=== PATIENT | female | born 1960 | race American Indian/Alaskan Native ===

== ENCOUNTER 2017-03-17 08:14 | Emergency (ER) | payer MEDICAID ==
[2017-03-17 08:23] VITALS: BP 122/70
--- NOTE | 2017-03-17 09:06 | Emergency Department Report ---
ED Extremity Problem HPI - General Chief complaint: Extremity Problem,Nontraumatic Stated complaint: FEET SWELLING/CHECK FOR DIABETES Time Seen by Provider: 03/17/17 08:53 Source: patient Mode of arrival: Ambulatory Limitations: No Limitations - History of Present Illness Initial comments: PT c/o that her feet have been swollen for 1 month. PT states she was seen at another ED 1 month ago and told to elevate her legs. PT states this has not helped. PT states she is currently in a substance abuse program and she has been standing more than normal. PT states she also has to walk up several steps to get to her classes. PT states is afraid that she has diabetes. PT states she has a family hx of diabetes and she has been having urinary frequency for 2 months. PT states that she has to get up at least 3 times at night to urinate. Pt denies injury or trauma. MD Complaint: extremity swelling Onset/Timin -: Gradual, month(s) Location: bilateral lower extremity History of Same: No -: No fever Quality: aching Consistency: constant Improves with: nothing Worsens with: walking Associated Symptoms: denies: chest pain, shortness of breath, fever - Related Data Previous Rx's Medication Instructions Recorded Last Taken Type Ibuprofen [Motrin] 400 mg PO Q8H PRN #20 tablet 12/07/16 Unknown Rx Loratadine [Claritin] 10 mg PO DAILY PRN #15 tablet 12/07/16 Unknown Rx Allergies Allergy/AdvReac Type Severity Reaction Status Date / Time acetaminophen Allergy Hives Verified 12/07/16 15:16 [From Tylenol-Codeine #3] codeine phosphate Allergy Hives Verified 12/07/16 15:16 [From Tylenol-Codeine #3] naproxen Allergy Hives Verified 12/07/16 15:16 tramadol Allergy Hives Verified 12/07/16 15:16 ED Review of Systems ROS: Stated complaint: FEET SWELLING/CHECK FOR DIABETES Other details as noted in HPI Comment: All other systems reviewed and negative Constitutional: denies: fever Respiratory: denies: shortness of breath Cardiovascular: denies: chest pain Gastrointestinal: denies: abdominal pain, nausea, vomiting Genitourinary: frequency. denies: dysuria, hematuria Musculoskeletal: as per HPI Skin: denies: rash ED Past Medical Hx - Past Medical History Previous Medical History?: Yes Hx Hypertension: Yes (no meds) Hx Psychiatric Treatment: Yes (bipolar ptsd) Hx Asthma: Yes Additional medical history: Narcotic abuse - Surgical History Past Surgical History?: Yes Hx Cholecystectomy: Yes Additional Surgical History: & Hernia repair - Family History Family history: diabetes - Social History Smoking Status: Current Every Day Smoker Substance Use Type: Prescribed - Medications Home Medications: Home Medications Medication Instructions Recorded Confirmed Last Taken Type Ibuprofen [Motrin] 400 mg PO Q8H PRN #20 tablet 12/07/16 Unknown Rx Loratadine [Claritin] 10 mg PO DAILY PRN #15 tablet 12/07/16 Unknown Rx ED Physical Exam - General Limitations: No Limitations General appearance: alert, in no apparent distress - Head Head exam: Present: atraumatic, normocephalic, normal inspection - Eye Eye exam: Present: normal appearance. Absent: conjunctival injection - ENT ENT exam: Present: normal exam, normal external ear exam - Neck Neck exam: Present: normal inspection, full ROM - Respiratory Respiratory exam: Present: normal lung sounds bilaterally. Absent: respiratory distress, chest wall tenderness - Cardiovascular Cardiovascular Exam: Present: regular rate, normal rhythm, normal heart sounds - GI/Abdominal GI/Abdominal exam: Present: soft. Absent: tenderness - Extremities Exam Extremities exam: Present: full ROM, pedal edema. Absent: tenderness - Expanded Lower Extremity Exam Left Knee exam: Present: normal inspection, full ROM Lower Leg exam: Present: normal inspection, full ROM. Absent: tenderness, swelling, Lashonda's sign Ankle exam: Present: normal inspection, full ROM Foot/Toe exam: Present: full ROM, swelling (trace ). Absent: tenderness Neuro vascular tendon exam: Present: no vascular compromise. Absent: pulse deficit, abnormal cap refill Gait: Positive: observed and normal Right Knee exam: Present: normal inspection, full ROM Lower Leg exam: Present: normal inspection, full ROM. Absent: tenderness, swelling, Lashonda's sign Ankle exam: Present: normal inspection, full ROM Foot/Toe exam: Present: full ROM, swelling (trace). Absent: tenderness Neuro vascular tendon exam: Present: no vascular compromise. Absent: pulse deficit Gait: Positive: observed and normal - Back Exam Back exam: Present: normal inspection, full ROM - Neurological Exam Neurological exam: Present: alert, oriented X3 - Psychiatric Psychiatric exam: Present: normal mood, flat affect - Skin Skin exam: Present: warm, dry, intact, normal color. Absent: rash ED Course Vital Signs 03/17/17 08:18 Temperature 98.3 F Pulse Rate 69 Respiratory 20 Rate Blood Pressure 122/70 O2 Sat by Pulse 100 Oximetry - Reevaluation(s) Reevaluation #1: 03/17/17 09:10 PT aware of plan of care. No questions at this time. Reevaluation #2: 03/17/17 10:52 PT aware of lab results. PT states she is a pt at [facility]. PT advised to follow up with PCP for her complaints. PT also instructed to continue to elevate ble and to wear compression socks when she knows she will be up on her feet. - Pulse Oximetry Interpretation Digit-Finger Initial Pulse Oximetry Readin Actions Taken: none ED Medical Decision Making - Lab Data Result diagrams: 03/17/17 09:19 03/17/17 09:19 - Differential Diagnosis acute renal insuff. new onset dm, uti Critical Care Time: No Critical care attestation.: If time is entered above; I have spent that time in minutes in the direct care of this critically ill patient, excluding procedure time. ED Disposition Clinical Impression: Pedal edema, Urinary frequency Disposition: DC-01 TO HOME OR SELFCARE Is pt being admited?: No Does the pt Need Aspirin: No Condition: Stable Instructions: Leg Edema (ED) Additional Instructions: Elevate your legs frequently Try wearing compression socks when you know you will be up on your feet for long periods of time. follow up with your MD at [facility] in the next 3-5 days Referrals: PRIMARY CARE,MD [Primary Care Provider] - 3-5 Days [facility] [Outside] - 3-5 Days Forms: Work/School Release Form(ED) Time of Disposition: 10:55
[2017-03-17 09:36] LABS: Basophils % (Auto) 0.1 % (0.0-1.8); Eosinophils % (Auto) 0.7 % (0.0-4.3); Hematocrit 32.1 % (30.3-42.9); Hemoglobin 10.8 gm/dl (10.1-14.3); Mean Corpuscular HGB Conc 34 % (30-34); Mean Corpuscular Hemoglobin 32 pg (28-32); Mean Corpuscular Volume 95 fl (79-97); Platelet Count 225 K/mm3 (140-440); Red Blood Count 3.37 M/mm3 (3.65-5.03); White Blood Count 8.2 K/mm3 (4.5-11.0)
[2017-03-17 09:51] LABS: Bilirubin,Urine NEG (Negative); Blood,Urine NEG (Negative); Ketones,Urine NEG (Negative); Leukocyte Esterase,Urine TR (Negative); Mucus,Urine FEW /HPF; Nitrite,Urine NEG (Negative); Protein,Urine <15 mg/dL mg/dL (Negative); Urobilinogen,Urine < 2.0 mg/dL (<2.0)
[2017-03-17 10:02] LABS: Alanine Aminotransferase 13 units/L (7-56); Albumin 3.8 g/dL (3.9-5); Albumin/Globulin Ratio 1.2 %; Alkaline Phosphatase 65 units/L (35-129); Anion Gap 13 mmol/L; Blood Urea Nitrogen 14 mg/dL (7-17); Calcium 8.7 mg/dL (8.4-10.2); Carbon Dioxide 26 mmol/L (22-30); Glucose 88 mg/dL (65-100); Potassium 4.8 mmol/L (3.6-5.0); Sodium 138 mmol/L (137-145); Total Protein 7.1 g/dL (6.3-8.2)
== END 2017-03-17 11:01 | disposition home or self-care (01) ==
LOC: ED 08:14
DX: R60.0 Localized edema (principal); R35.0 Frequency of micturition; I10 Essential (primary) hypertension; F31.9 Bipolar disorder, unspecified; J45.909 Unspecified asthma, uncomplicated; F17.200 Nicotine dependence, unspecified, uncomplicated
CPT/HCPCS: 36415; 80053; 81001; 85025; 99283

== ENCOUNTER 2017-04-02 11:24 | Emergency (ER) | payer MEDICAID ==
[2017-04-02 12:12] LABS: Basophils % (Auto) 0.2 % (0.0-1.8); Eosinophils % (Auto) 0.7 % (0.0-4.3); Hematocrit 34.5 % (30.3-42.9); Hemoglobin 11.4 gm/dl (10.1-14.3); Mean Corpuscular HGB Conc 33 % (30-34); Mean Corpuscular Hemoglobin 30 pg (28-32); Mean Corpuscular Volume 91 fl (79-97); Platelet Count 252 K/mm3 (140-440); Red Blood Count 3.78 M/mm3 (3.65-5.03); Red Cell Distribution Width 13.3 % (13.2-15.2); White Blood Count 9.2 K/mm3 (4.5-11.0)
--- NOTE | 2017-04-02 12:16 | XRay Report ---
Chest 2 views: History: Shortness of breath. Findings: Normal cardiomediastinal silhouette the trachea is midline. No consolidation, pneumothorax or pleural effusion. Impression: No acute cardiopulmonary findings.
[2017-04-02] MEDS ORDERED: LASIX IV ONE (12:26)
[2017-04-02 12:29] LABS: Anion Gap 17 mmol/L; Blood Urea Nitrogen 13 mg/dL (7-17); Calcium 8.9 mg/dL (8.4-10.2); Carbon Dioxide 24 mmol/L (22-30); Glucose 85 mg/dL (65-100); Potassium 4.1 mmol/L (3.6-5.0); Sodium 139 mmol/L (137-145)
--- NOTE | 2017-04-02 12:41 | Emergency Department Report ---
HPI - General Chief Complaint: Dyspnea/Respdistress Time Seen by Provider: 04/02/17 11:41 - HPI HPI: The patient is a 56-year-old female who presents for evaluation of dyspnea. The patient reports distant leg swelling greater than the past month, worsening constant for the past one day. Her shortness of breath is moderate in severity , exacerbated with ambulation, and improved with rest. Her leg swelling has been mild, constant, exacerbated with standing and ambulation. The patient has fever, trauma to the chest or legs, chest pain, hemoptysis, unilateral leg swelling, oral contraceptive use, recent immobilization, history of DVT or PE, recent cancer, history of familial coagulation disorder. ED Past Medical Hx - Past Medical History Previous Medical History?: Yes Hx Hypertension: Yes (no meds) Hx Psychiatric Treatment: Yes (bipolar ptsd) Hx Asthma: Yes Additional medical history: Narcotic abuse - Surgical History Past Surgical History?: Yes Hx Cholecystectomy: Yes Additional Surgical History: & Hernia repair - Social History Smoking Status: Current Every Day Smoker Substance Use Type: None - Medications Home Medications: Home Medications Medication Instructions Recorded Confirmed Last Taken Type Ibuprofen [Motrin] 400 mg PO Q8H PRN #20 tablet 12/07/16 Unknown Rx Loratadine [Claritin] 10 mg PO DAILY PRN #15 tablet 12/07/16 Unknown Rx Furosemide [Lasix] 20 mg PO QDAY #20 tablet 04/02/17 Unknown Rx ED Review of Systems ROS: Stated complaint: FEET SWELLING Other details as noted in HPI Constitutional: denies: fever ENT: denies: throat or neck pain Respiratory: denies: cough reports shortness of breath Cardiovascular: denies chest pain Endocrine: denies unexplained weight loss or gain Gastrointestinal: denies: abdominal pain, nausea Genitourinary: denies: dysuria Musculoskeletal: reports leg swelling Skin: denies: rash Neurological: denies: headache Hematological/Lymphatic: denies: easy bleeding or easy bruising Psych: denies sadness or hopelessness Physical Exam - Physical Exam Vital Signs: Vital Signs 04/02/17 04/02/17 04/02/17 11:30 11:42 11:45 Temperature 99.0 F Pulse Rate 85 111 H 95 H Respiratory 20 22 22 Rate Blood Pressure 126/73 155/82 O2 Sat by Pulse 100 Oximetry 04/02/17 04/02/17 11:50 12:16 Temperature Pulse Rate 84 83 Respiratory 20 14 Rate Blood Pressure 155/82 155/82 O2 Sat by Pulse 99 98 Oximetry Physical Exam: General: well-nourished, well-developed, no acute distress Head: Normocephalic, atraumatic Eyes: normal sclera ENT: Mucous membranes are pink and moist Neck: trachea midline, neck supple, No neck stiffness, no cervical adenopathy Respiratory: Breath sounds equal bilaterally, no wheezing, rales, or rhonchi Cardio: S1 and S2 present, no murmurs, rubs, gallops, capillary refill is brisk Abdomen: Normoactive bowel sounds, soft abdomen, no rigidity, no guarding or rebound tenderness Chest WALL/Back: No tenderness to palpation of the chest wall, no CVA tenderness with percussion Musc: 1+ pitting edema of bilateral lower legs Skin: No rash Neuro: no facial drooping, normal speech Psych: Normal affect ED Course Vital Signs 04/02/17 04/02/17 04/02/17 11:30 11:42 11:45 Temperature 99.0 F Pulse Rate 85 111 H 95 H Respiratory 20 22 22 Rate Blood Pressure 126/73 155/82 O2 Sat by Pulse 100 Oximetry 04/02/17 04/02/17 11:50 12:16 Temperature Pulse Rate 84 83 Respiratory 20 14 Rate Blood Pressure 155/82 155/82 O2 Sat by Pulse 99 98 Oximetry ED Medical Decision Making - Lab Data Result diagrams: 04/02/17 12:02 - Medical Decision Making The patient was seen and examined by myself. The patient is placed on a campus monitor and continuous pulse ox. On initial evaluation, the patient was found to be in no distress. EKG was negative for findings suggestive of acute cardiac infarct. Labs and imaging are obtained. The patient is given IV Lasix for treatment of her mild peripheral lower extremity edema. Chest x-ray is negative for pneumothorax, focal consolidation, pulmonary vascular congestion, pleural effusion, or other obvious acute cardiopulmonary disease process. Lab results were non-concerning including normal levels of troponin and indeterminate BNP level of 240. The patient was reevaluated and reported that her symptoms were markedly improved. As the patient has a TERESA risk score less than 2, and a well's score less than 2, the patient is at low risk of ACS or pulmonary emboli etiology of their symptoms. The patient is stable for discharge with outpatient follow-up. The patient is given follow-up and return instructions. The patient expressed understanding and agreed with the plan. The patient is discharged in stable condition. Critical care attestation.: If time is entered above; I have spent that time in minutes in the direct care of this critically ill patient, excluding procedure time. ED Disposition Clinical Impression: Localized swelling of lower leg, Acute dyspnea Disposition: TO HOME OR SELFCARE Is pt being admited?: No Does the pt Need Aspirin: No Condition: Stable Instructions: Leg Edema (ED) Prescriptions: Furosemide [Lasix] 20 mg PO QDAY #20 tablet Referrals: PRIMARY MD JOVANA [Primary Care Provider] - 3-5 Days SERENA KIMBROUGH MD [Staff Physician] - 3-5 Days Time of Disposition: 13:12
[2017-04-02 13:56] VITALS: BP 112/57
== END 2017-04-02 14:08 | disposition home or self-care (01) ==
LOC: ED 11:24
DX: R22.40 Localized swelling, mass and lump, unspecified lower limb (principal); R06.00 Dyspnea, unspecified
CPT/HCPCS: 36415; 71020; 80048; 83880; 84484; 85025; 93005; 93010; 96374; 99284; J1940

== ENCOUNTER 2018-04-25 11:53 | Emergency (ER) | payer MEDICAID | END 2018-04-25 12:47 | disposition left against medical advice (07) | LOC: ED 11:53 | DX: M25.519 Pain in unspecified shoulder (principal); Z53.21 Procedure and treatment not carried out due to patient leaving prior to being seen by health care provider ==

== ENCOUNTER 2019-11-24 10:35 | Emergency (ER) | payer MEDICAID ==
[2019-11-24 10:40] VITALS: BP 114/91
--- NOTE | 2019-11-24 11:28 | Emergency Department Report ---
ED General Adult HPI - General Chief complaint: Medical Clearance Stated complaint: EYE IRRITATION/THYROID CHECK Time Seen by Provider: 11/24/19 11:15 Source: patient Mode of arrival: Ambulatory Limitations: No Limitations - History of Present Illness Initial comments: Patient is a 59-year-old F Tajik female who has a history of bipolar disorder hypertension asthma who is presenting with a rash. Patient states she believes she was bitten by bedbugs. She has had lesions that are itchy on her body for the last 2 days. Patient is currently homeless. Patient also states she wants a colonoscopy and wants her thyroid checked. Patient is not complaining any chest pain shortness of breath fevers chills nausea vomiting diarrheaCough cold or congestion. - Related Data Previous Rx's Medication Instructions Recorded Last Taken Type Ibuprofen [Motrin] 400 mg PO Q8H PRN #20 tablet 12/07/16 Unknown Rx Loratadine (Nf) [Claritin] 10 mg PO DAILY PRN #15 tablet 12/07/16 Unknown Rx Furosemide [Lasix] 20 mg PO QDAY #20 tablet 04/02/17 Unknown Rx Allergies Allergy/AdvReac Type Severity Reaction Status Date / Time codeine phosphate Allergy Hives Verified 11/24/19 10:51 [From Tylenol-Codeine #3] naproxen Allergy Hives Verified 11/24/19 10:51 tramadol Allergy Hives Verified 11/24/19 10:51 ED Review of Systems ROS: Stated complaint: EYE IRRITATION/THYROID CHECK Other details as noted in HPI Comment: All other systems reviewed and negative ED Past Medical Hx - Past Medical History Hx Hypertension: Yes (no meds) Hx Psychiatric Treatment: Yes (bipolar ptsd) Hx Asthma: Yes Additional medical history: Narcotic abuse - Surgical History Hx Cholecystectomy: Yes Additional Surgical History: & Hernia repair - Social History Smoking Status: Current Every Day Smoker Substance Use Type: Alcohol, Cocaine, Marijuana - Medications Home Medications: Home Medications Medication Instructions Recorded Confirmed Last Taken Type Ibuprofen [Motrin] 400 mg PO Q8H PRN #20 tablet 12/07/16 Unknown Rx Loratadine (Nf) [Claritin] 10 mg PO DAILY PRN #15 tablet 12/07/16 Unknown Rx Furosemide [Lasix] 20 mg PO QDAY #20 tablet 04/02/17 Unknown Rx ED Physical Exam - General Limitations: No Limitations General appearance: alert, in no apparent distress - Head Head exam: Present: atraumatic, normocephalic - Eye Eye exam: Present: normal appearance - ENT ENT exam: Present: mucous membranes moist - Neck Neck exam: Present: normal inspection - Respiratory Respiratory exam: Present: normal lung sounds bilaterally. Absent: respiratory distress, wheezes, rales - Cardiovascular Cardiovascular Exam: Present: regular rate, normal rhythm. Absent: systolic murmur, diastolic murmur, rubs, gallop - GI/Abdominal GI/Abdominal exam: Present: soft, normal bowel sounds - Extremities Exam Extremities exam: Present: normal inspection - Back Exam Back exam: Present: normal inspection - Neurological Exam Neurological exam: Present: alert, oriented X3 - Psychiatric Psychiatric exam: Present: normal affect, normal mood - Skin Skin exam: Present: warm, dry, intact, normal color, rash (Discrete dime sized areas of erythema which are flat and raised consistent with urticaria. He is located sporadically on the upper and lower extremities as well as the torso) ED Course Vital Signs 11/24/19 10:38 Temperature 99.3 F Pulse Rate 85 Respiratory 18 Rate Blood Pressure 114/91 O2 Sat by Pulse 99 Oximetry ED Medical Decision Making - Medical Decision Making Patient's lesions are consistent with insect bites. Patient is used [id number] hydrocortisone cream and Benadryl. Patient also given outpatient community resources for her other concerns. Patient has no medical emergencies at this time is been screened out to follow-up with community resources. Critical care attestation.: If time is entered above; I have spent that time in minutes in the direct care of this critically ill patient, excluding procedure time. ED Disposition Clinical Impression: Insect bite Qualifiers: Encounter type: initial encounter Site of insect bite: unspecified site Qualified Code(s): W57.XXXA - Bitten or stung by nonvenomous insect and other nonvenomous arthropods, initial encounter Disposition: MED SCREENING EXAM-LEFT Is pt being admited?: No Does the pt Need Aspirin: No Condition: Stable Additional Instructions: Please by hydrocortisone cream [id number] and use on your rash. You may also take Benadryl 25 mg every 6 hours for itching Referrals: ERIK CORDERO MD [Referring] - 3-5 Days Time of Disposition: 11:28
== END 2019-11-24 11:37 | disposition left against medical advice (07) ==
LOC: ED 10:35
DX: T14.8XXA Other injury of unspecified body region, initial encounter (principal); I10 Essential (primary) hypertension; F32.9 Major depressive disorder, single episode, unspecified; J45.909 Unspecified asthma, uncomplicated; F17.200 Nicotine dependence, unspecified, uncomplicated; F12.10 Cannabis abuse, uncomplicated; F14.10 Cocaine abuse, uncomplicated; Z98.890 Other specified postprocedural states; Z79.1 Long term (current) use of non-steroidal anti-inflammatories (NSAID); Z79.899 Other long term (current) drug therapy; Z88.4 Allergy status to anesthetic agent; Z88.8 Allergy status to other drugs, medicaments and biological substances; W57.XXXA Bitten or stung by nonvenomous insect and other nonvenomous arthropods, initial encounter; Y93.89 Activity, other specified; Y92.89 Other specified places as the place of occurrence of the external cause; Y99.8 Other external cause status
CPT/HCPCS: 99281